=== PATIENT | female | born 1945 | race Caucasian/White ===

== ENCOUNTER → 2017-08-15 08:47 | Outpatient (CLI) | payer MEDICARE, OTHER, SELFPAY ==
[2017-08-15 11:07] LABS: Add Manual Diff / Slide Review NO; Basophils Percent Auto 0.4 % (0-2); Eosinophils Percent Auto 1.1 % (2-4); Hematocrit 41.2 % (36-46); Hemoglobin 14.2 g/dL (12.0-16.0); Mean Corpuscular HGB Conc 34.5 % (30-36); Mean Corpuscular Hemoglobin 30.3 PG (26-34); Mean Corpuscular Volume 87.8 fL (80-100); Neutrophils Absolute Auto 4400 /uL (3000-5900); Neutrophils Percent Auto 69.5 % (50-75); Platelet Count 553 X10^3/uL (150-400); Red Blood Cell Count 4.68 X10^6/uL (4.0-5.2); Red Cell Distribution Width 13.2 % (11.6-14.8); White Blood Cell Count 6.4 X10^3/uL (4.5-11.0)
[2017-08-15 11:24] LABS: Cholesterol 181 mg/dL (140-199); HDL Cholesterol 44 mg/dL (40-60); LDL Cholesterol Calculated 107 mg/dL (<100); Triglycerides 150 mg/dL (35-150)
[2017-08-15 11:50] LABS: TSH w/ Reflex to FT4 2.63 uIU/mL (0.47-4.68)
== END ==
PROVIDERS: PCP Internal Medicine; Visit Provider Internal Medicine
DX: D47.3 Essential (hemorrhagic) thrombocythemia (principal); Z13.220 Encounter for screening for lipoid disorders
CPT/HCPCS: 36415; 80061; 84443; 85025

== ENCOUNTER → 2017-10-14 12:23 | Outpatient (CLI) | payer MEDICARE, OTHER, SELFPAY | PROVIDERS: PCP Internal Medicine; Visit Provider Physician Assistant | DX: M54.5 Low back pain (principal) | CPT/HCPCS: 87077; 87086 ==

== ENCOUNTER → 2017-11-16 10:41 | Outpatient (CLI) | payer MEDICARE, OTHER, SELFPAY | PROVIDERS: PCP Internal Medicine; Visit Provider Physician Assistant | DX: R30.0 Dysuria (principal) | CPT/HCPCS: 87077; 87086; 87186 ==

== ENCOUNTER → 2017-11-30 17:09 | Outpatient (CLI) | payer MEDICARE, OTHER, SELFPAY | PROVIDERS: PCP Internal Medicine; Visit Provider Physician Assistant | DX: N30.91 Cystitis, unspecified with hematuria (principal) | CPT/HCPCS: 87077; 87086; 87186 ==

== ENCOUNTER → 2018-07-25 14:32 | Outpatient (CLI) | payer MEDICARE, OTHER, SELFPAY | PROVIDERS: PCP Internal Medicine; Visit Provider Physician Assistant | DX: N39.0 Urinary tract infection, site not specified (principal) | CPT/HCPCS: 87077; 87086; 87186 ==

== ENCOUNTER → 2018-08-11 13:57 | Outpatient (CLI) | payer MEDICARE, OTHER, SELFPAY ==
[2018-08-11 14:18] LABS: RBC Urine None Seen (0-5/HPF)
[2018-08-11 14:49] LABS: Appearance Urine UA SL CLOUDY; Bilirubin Urine UA NEGATIVE (NEGATIVE); Glucose Urine UA NEGATIVE (Negative); Ketones Urine UA NEGATIVE (NEGATIVE); Leukocyte Esterase Urine UA 2+ (NEGATIVE); Nitrite Urine UA POSITIVE (Negative); Occult Blood Urine UA NEGATIVE (Negative); Protein Urine UA TRACE (Negative); pH Urine UA 7.5 (4.5-8.0)
[2018-08-11 14:58] LABS: Amorphous Sediment Urine 1+; Bacteria Urine Many (>30); Color Urine UA Dark Yellow; Culture Indicated Urine Specimen Cultured; Mucus Urine 1+ (Negative); Squamous Epithelial Cell Urine 1-5 /HPF (0-5/HPF); WBC Urine 10-30/HPF (0-5/HPF)
== END ==
PROVIDERS: Visit Provider Urology
DX: N39.0 Urinary tract infection, site not specified (principal)
CPT/HCPCS: 81001; 87077; 87086; 87186

== ENCOUNTER → 2018-08-25 15:10 | Outpatient (CLI) | payer MEDICARE, OTHER, SELFPAY | PROVIDERS: Visit Provider Urology | DX: R30.0 Dysuria (principal) | CPT/HCPCS: 87077; 87086; 87186 ==

== ENCOUNTER → 2018-09-16 12:11 | Outpatient (CLI) | payer MEDICARE, OTHER, SELFPAY ==
--- NOTE | 2018-09-16 | DI.CT.S_ITS ---
PROCEDURE: CT KIDNEY URETER BLADDER (KUB) INDICATIONS: UTI TECHNIQUE: Noncontrast 5 mm thick sections acquired from the diaphragms to the symphysis. 5 mm thick coronal and sagittal reformats were then performed. For radiation dose reduction, the following was used: automated exposure control, adjustment of mA and/or kV according to patient size. COMPARISON: None. FINDINGS: Image quality: Excellent. Lung bases: Lung bases are clear. Heart size is normal. Urinary system: Both kidneys are normal in size. No kidney stones. No hydronephrosis or perinephric fat stranding. Both ureters appear non-dilated throughout their expected courses. Bladder wall thickness is normal; no calcified bladder stones. Other solid organs: Liver is normal in size. Gallbladder appears normal but partially contracted. Pancreas is normal in contours. Spleen is normal in size. No adrenal nodules. Peritoneum and bowel: Unenhanced bowel loops demonstrate normal wall thickness and caliber. No free fluid or air. Nodes and vessels: No retroperitoneal or mesenteric adenopathy by size criteria. Aorta and inferior vena cava are normal in caliber. Abdominal wall: No ventral hernias. Pelvis: No free pelvic fluid. No inguinal hernias or adenopathy. Bones: No suspicious bony lesions. No vertebral body compression fractures. . IMPRESSION: Normal appendix, no sign of urinary tract stone or inflammation. Dictated by: Paul Chen M.D. on 09/16/2018 at 12:47 Approved by: Paul Chen M.D. on 09/16/2018 at 12:49
== END ==
PROVIDERS: Visit Provider Urology
DX: N39.0 Urinary tract infection, site not specified (principal)
CPT/HCPCS: 74176

== ENCOUNTER → 2019-08-03 12:09 | Outpatient (CLI) | payer MEDICARE, OTHER, SELFPAY | PROVIDERS: Visit Provider Family Medicine | DX: N39.0 Urinary tract infection, site not specified (principal) | CPT/HCPCS: 87086 ==

== ENCOUNTER → 2019-09-03 18:34 | Outpatient (ROUT) | payer MEDICARE, OTHER, SELFPAY ==
[2019-09-03 18:51] LABS: Add Manual Diff / Slide Review NO; Basophils Absolute Auto 0 /uL (0-100); Basophils Percent Auto 0.7 % (0-2); Eosinophils Absolute Auto 100 /uL (0-450); Eosinophils Percent Auto 1.5 % (2-4); Hematocrit 38.9 % (36-46); Hemoglobin 13.3 g/dL (12.0-16.0); Lymphocytes Absolute Auto 1200 /uL (1100-4500); Lymphocytes Percent Auto 23.4 % (25-40); Mean Corpuscular HGB Conc 34.3 % (30-36); Mean Corpuscular Hemoglobin 29.8 PG (26-34); Mean Corpuscular Volume 87.1 fL (80-100); Monocytes Absolute Auto 300 /uL (0-900); Monocytes Percent Auto 5.9 % (3-14); Neutrophils Absolute Auto 3500 /uL (1500-7000); Neutrophils Percent Auto 68.5 % (50-75); Platelet Count 547 X10^3/uL (150-400); Red Blood Cell Count 4.47 X10^6/uL (4.0-5.2); Red Cell Distribution Width 13.1 % (11.6-14.8); White Blood Cell Count 5.1 X10^3/uL (4.5-11.0)
[2019-09-03 18:55] LABS: Alanine Aminotransferase 25 IU/L (<35); Albumin 3.8 g/dL (3.5-5.0); Albumin Globulin Ratio 1.7 (1.0-2.8); Alkaline Phosphatase 69 U/L (38-126); Aspartate Aminotransferase 24 IU/L (14-36); BUN Creatinine Ratio 22.5 (6-22); Bilirubin Total 0.6 mg/dL (0.2-1.3); Blood Urea Nitrogen 23 mg/dL (7-17); Calcium 9.8 mg/dL (8.4-10.2); Carbon Dioxide 27 mmol/L (22-32); Chloride 105 mmol/L (98-107); Cholesterol 147 mg/dL (140-199); Globulin 2.3 g/dL (1.7-4.1); Glucose 70 mg/dL (80-110); HDL Cholesterol 41 mg/dL (40-60); HEMOLYSIS < 15 (0-50); LDL Cholesterol Calculated 80 mg/dL (<100); Potassium 4.8 mmol/L (3.4-5.1); Sodium 137 mmol/L (137-145); Total Protein 6.1 g/dL (6.3-8.2); Triglycerides 131 mg/dL (35-150)
[2019-09-03 19:23] LABS: TSH w/ Reflex to FT4 0.21 uIU/mL (0.47-4.68)
[2019-09-03 19:50] LABS: Free T4, Direct Thyroxine 1.41 ng/dL (0.78-2.19)
== END ==
PROVIDERS: Visit Provider Physician Assistant
DX: E03.9 Hypothyroidism, unspecified (principal); E78.2 Mixed hyperlipidemia
CPT/HCPCS: 80053; 80061; 84439; 84443; 85025

== ENCOUNTER → 2019-09-23 09:07 | Outpatient (CLI) | payer MEDICARE, OTHER, SELFPAY ==
[2019-09-23 09:50] LABS: Hemoglobin 13.5 g/dL (12.0-16.0); Mean Corpuscular HGB Conc 33.7 % (30-36); Mean Corpuscular Hemoglobin 29.5 PG (26-34); Mean Corpuscular Volume 87.5 fL (80-100); Platelet Count 564 X10^3/uL (150-400); Red Blood Cell Count 4.57 X10^6/uL (4.0-5.2); Red Cell Distribution Width 13.2 % (11.6-14.8); White Blood Cell Count 5.5 X10^3/uL (4.5-11.0)
[2019-09-23 10:16] LABS: BUN Creatinine Ratio 23.6 (6-22); Blood Urea Nitrogen 25 mg/dL (7-17); Calcium 9.6 mg/dL (8.4-10.2); Carbon Dioxide 29 mmol/L (22-32); Chloride 105 mmol/L (98-107); Estimated Glomerular Filt Rate 50.7 mL/min (>60); Glucose 91 mg/dL (80-110); HEMOLYSIS < 15 (0-50); Potassium 4.5 mmol/L (3.4-5.1); Sodium 140 mmol/L (137-145)
[2019-09-23 10:20] LABS: Neutrophils Absolute Manual 3795 /uL (3000-5900); Total Cells Counted 100
[2019-09-23 10:21] LABS: RBC Morphology Normal Morphology
[2019-09-23 10:43] LABS: TSH w/ Reflex to FT4 1.13 uIU/mL (0.47-4.68)
== END ==
PROVIDERS: PCP Physician Assistant; Referring Provider Physician Assistant; Visit Provider Physician Assistant
DX: D47.3 Essential (hemorrhagic) thrombocythemia (principal); E16.2 Hypoglycemia, unspecified; E03.9 Hypothyroidism, unspecified
CPT/HCPCS: 36415; 80048; 83036; 84443; 85025

== ENCOUNTER → 2019-11-02 11:12 | Outpatient (CLI) | payer MEDICARE, OTHER, SELFPAY ==
--- NOTE | 2019-11-02 11:14 | DI.US.S_ITS ---
PROCEDURE: US CAROTID DOPPLER BI INDICATIONS: Dizziness and thrombocythemia TECHNIQUE: Color and pulse Doppler interrogation was performed of both carotid systems, with image documentation and velocity measurements. COMPARISON: None. FINDINGS: Stenosis calculations are based on SRU (Society of Radiologists in Ultras[employer]) criteria. The flow velocities and the arterial waveforms are normal within both carotid arterial systems. Atherosclerotic plaque is seen on both sides. The estimated degree of internal carotid artery stenosis is less than 50%. Antegrade flow is confirmed within both vertebral arteries. IMPRESSION: No hemodynamically significant stenosis is seen. Atherosclerotic plaque is noted bilaterally. Dictated by: Turner Booth M.D. on 11/02/2019 at 14:51 Approved by: Turner Booth M.D. on 11/02/2019 at 14:51
== END ==
PROVIDERS: PCP Physician Assistant; Referring Provider Physician Assistant; Visit Provider Internal Medicine
DX: I65.23 Occlusion and stenosis of bilateral carotid arteries (principal); D47.3 Essential (hemorrhagic) thrombocythemia; R42 Dizziness and giddiness
CPT/HCPCS: 93880

== ENCOUNTER → 2019-12-08 13:20 | Oncology outpatient (ONC) | payer MEDICARE, OTHER, SELFPAY ==
[2019-10-27 11:21] VITALS: BP 142/82; PULSE 76; RESP 76; TEMP 36.4; O2SAT 100
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
[2019-10-28 10:25] LABS: Hematocrit 43.2 % (36-46); Hemoglobin 14.7 g/dL (12.0-16.0); Mean Corpuscular Hemoglobin 29.4 PG (26-34); Mean Corpuscular Volume 86.4 fL (80-100); Platelet Count 562 X10^3/uL (150-400); Red Cell Distribution Width 13.7 % (11.6-14.8); White Blood Cell Count 6.1 X10^3/uL (4.5-11.0)
[2019-10-28 10:40] LABS: Neutrophils Absolute Manual 4514 /uL (3000-5900); Total Cells Counted 100
[2019-10-28 10:41] LABS: Platelet Estimate Increased on smear; RBC Morphology Normal Morphology
[2019-10-28 10:50] LABS: HEMOLYSIS < 15 (0-50); Iron 122 ug/dL (37-170)
[2019-10-28 10:54] LABS: Erythrocyte Sedimentation Rate 4 MM/HR (0-20)
[2019-10-28 10:59] LABS: C-Reactive Protein Quant < 0.5 mg/dL (<1.0)
[2019-10-28 11:00] LABS: Percent Iron Saturation 39 % (15-50); Total Iron Binding Capacity 314 ug/dL (265-497); Transferrin 239 mg/dL (206-381)
[2019-10-28 11:26] LABS: Ferritin 105 ng/mL (11-264)
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
[2019-11-17 15:49] VITALS: BP 135/86; PULSE 66; RESP 16; TEMP 36.6; O2SAT 98
[2019-12-08 13:21] VITALS: BP 137/84; PULSE 65; RESP 18; TEMP 36.9; O2SAT 98
--- NOTE | 2019-12-08 14:11 | P.PNONC_ITS ---
PN -Subjective Interval history: Shira Bui is a 74 year old female who presents for further evaluation of an elevated platelet count. Review of her records shows that on November 12, 2016 she had a platelet count of 512,000. Hemoglobin, hematocrit, white count, white cell differential, red cell indices, and RDW were all normal at that time. She had additional blood work done on September 02 when she had a platelet count of 547,000. CBC was otherwise normal except for a lymphocyte percentage of 23.4 and an eosinophil percentage of 1.5. Metabolic panel showed a BUN 23 glucose 70 total protein of 6.1 of the otherwise a normal comprehensive metabolic panel, lipid profile and T4. Follow-up blood count on September 22 showed a platelet count of 564,000 with an otherwise normal CBC including white cell differential. Because of her persistent thrombocytosis she was referred for Hematology consultation last month. Initial screening with a RANDY 2 mutation analysis was negative for all axons tested. She had additional testing done. She comes in today to review results. Review of systems is remarkable for a 2-3 year history of easy bruising. This occurs primarily on her upper extremities. She does not have prolonged bleeding from superficial cuts or any bleeding from her nose, gums, bowels or urine. She does note some dizziness. It typically comes on when she is standing. She will hold on her sit down until it has resolved. She does have the sensation that her right arm is slightly stronger than her left arm. She notes purple discoloration of her toes for the last several years. This is episodic but frequently present. She does not usually find it painful. She notes some pain in her right arm and across her shoulders for the last month or so. There is no associated numbness or tingling. Does not wake her up at night. She has had a lot of trouble with fatigue for the last 3-6 months. She feels sad. Her broth er-in-law about 6 months ago and she is very worried about her sister. She has taken Prozac in the past on 2 occasions with an excellent response. She currently has citalopram but has not started taking it. She also notes constipation relieved by MiraLax over the last 6 months. Now which she takes the MiraLax she will sometimes have diarrhea rather than a normal stool. She thinks the symptoms are a little worse over the last month or 2. She does not have any rectal bleeding and no pain. She has been on anti depression therapy for a little over a month now is definitely feeling better. She and her are going to be going to [place] for the winter and she will be back in August. She denies anorexia, unintended weight loss, night sweats, headaches, visual symptoms, leg pain, redness or swelling, pleuritic chest pain, shortness of breath, a history of heart attacks or strokes. She denies nausea, vomiting, other pain, fever, chills, mouth sores, trouble swallowing or cough. All other systems are negative. Past medical history 1. Her father of bladder cancer. Family history is otherwise negative for any cancer or blood related illnesses 2. She has had no previous surgeries 3. Current medications include amitriptyline 10 mg at HS, calcium, vitamin-D, and Synthroid 0.125 mg daily. She also takes a baby aspirin daily. 4. Hypothyroidism, on replacement 5. She has no known drug allergy 6. She is accompanied by is very supportive. She is a former smoker quit 25 years ago. She is not a drinker. She goes for some walks, plays golf in boats but is definitely less active over the last 2 months than she was. She generally eats a good diet. 7. She denies high blood pressure, diabetes, rheumatic fever, tuberculosis, heart attacks, strokes, stomach ulcers, pneumonia or any other kind of cancer. - Patient Self-Reported Symptoms SR Constitution: Fatigue/Malaise SR Skin issues: Dry skin, Skin lesions or moles SR Gastrointestinal issues: Constipation SR Hematologic issues: Bleeding/bruising Home Medications and Allergies Home Medications Medication Instructions Recorded Confirmed Type levothyroxine [Synthroid] 125 mcg PO QAM #30 tab 10/25/15 12/08/19 History amitriptyline 10 mg PO BEDTIME 10/27/19 12/08/19 History calcium carbonate-vitamin D3 1 tab DAILY 10/27/19 12/08/19 History [Calcium 500 + D] cholecalciferol (vitamin D3) 25 mcg PO DAILY 10/27/19 12/08/19 History [Vitamin D3] Allergies Allergy/AdvReac Type Severity Reaction Status Date / Time No Known Drug Allergies Allergy Verified 07/25/18 14:23 Exam Vital signs: Vital Signs Temp Pulse Resp BP Pulse Ox 12/08/19 13: 98.4 F 65 18 137/84 98 Intake and Output 12/07/19 12/08/19 12/08/19 23:59 07:59 15:59 Other: Weight 66.5 kg Patient Weight 12/08/19 23:59 Weight 66.5 kg Narrative: She was awake, alert and oriented x3. She was fully ambulatory and in no acute distress. Results - Labs Laboratory Last Values WBC 6.1 X10^3/uL (4.5-11.0) 10/28/19 09: RBC 5.00 X10^6/uL (4.0-5.2) 10/28/19 09: Hgb 14.7 g/dL (12.0-16.0) 10/28/19: Hct 43.2 % (36-46) 10/28/19 09: MCV 86.4 fL (80-100) 10/28/19 09: MCH 29.4 PG (26-34) 10/28/19: MCHC 34.0 % (30-36) 10/28/19 09: RDW 13.7 % (11.6-14.8) 10/28/19 09: Plt Count 562 X10^3/uL (150-400) H 10/28/19 09: Total Counted 100 10/28/19 09: Seg Neutrophils % 72.0 % (38-70) H 10/28/19 09:28 Band Neutrophils % 2.0 % (3-7) L 10/28/19 09: Lymphocytes % (Manual) 18.0 % (25-45) L 10/28/19 09:28 Monocytes % (Manual) 6.0 % (2-11) 10/28/19 09:28 Eosinophils % (Manual) 2.0 % (2-4) 10/28/19: Neutrophils # (Manual) 4514 /uL (6655-4034) 10/28/19 09:28 Platelet Estimate Increased on smear 10/28/19 09:28 RBC Morphology Normal morphology 10/28/19 09:28 ESR 4 MM/HR (0-20) 10/28/19 09:28 Iron 122 ug/dL (37-170) 10/28/19 09:28 TIBC 314 ug/dL (265-497) 10/28/19 09:28 % Saturation 39 % (15-50) 10/28/19 09:28 Transferrin 239 mg/dL (206-381) 10/28/19 09:28 Ferritin 105 ng/mL (11-264) 10/28/19 09:28 C-Reactive Protein < 0.5 mg/dL (<1.0) 10/28/19 09:28 JAK2 V617F Mutation Comment (.) 10/28/19 09:28 JAK2 Exon 12 Backgrnd Comment (.) 10/28/19 09:28 JAK2 Director Review Comment (.) 10/28/19 09:28 JAK2 Ex 12-15 (PCR) Comment (.) 10/28/19 09:28 JAK2 Ex 12-15 Method Comment (.) 10/28/19 09:28 JAK2 Ex 12-15 References Comment (.) 10/28/19 09:28 JAK2 Ex 12-15 Dir Rev Comment (.) 10/28/19 09:28 JAK2 V617F Mut Bckgrnd Comment (.) 10/28/19 09:28 JAK2 HPGDE DNA Extract Completed (.) 10/28/19 09:28 Calreticulin Mutation Comment (.) 11/24/19 08:54 Calreticulin Mut Method Comment (.) 11/24/19 08:54 Calreticulin Background Comment (.) 11/24/19 08:54 Calreticulin References Comment (.) 11/24/19 08:54 Calreticulin Dir Review Comment (.) 11/24/19 08:54 MPL Mut Analysis Result Comment (.) 11/24/19 08:54 MPL Background Comment (.) 11/24/19 08:54 MPL Methodology Comment (.) 11/24/19 08:54 MPL References Comment (.) 11/24/19 08:54 MPL Director Review Comment (.) 11/24/19 08:54 Assessment and Plan (1) Thrombocythemia Status: Acute Ms. Bui has a persistent elevation of her platelet count. It is not severe but is been gradually progressive. The remainder of her CBC has been normal. She does not have splenomegaly either on exam or by CT scan from September of 2018. She has symptoms of easy bruising and also has had some dizzy spells. She is otherwise asymptomatic. RANDY 2 with multiple Exon analysis is negative. C- reactive protein and sedimentation rate are normal. Iron Studies are normal. She has also had testing for calreticulin and MPL both of which are negative. We discussed the fact that about 90% of patients with essential thrombocythemia will have a mutation in 1 of the 3 genes tested. She does not. This makes it less likely that she has essential thrombocythemia but does not exclude the diagnosis. We discussed other potential causes including reactive thrombocytosis from a chronic inflammatory condition, or iron deficiency. She does not have any evidence of these findings. We reviewed the fact that we do not have a specific diagnosis. Further testing would take the form of a bone marrow examination. I explained that if she has essential thrombocythemia, the bone marrow would have characteristic findings. If we were to confirm this diagnosis, we would typically continue her baby aspirin but would also consider starting her on hydroxyurea to try to reduce the risk of thrombotic and bleeding complications from essential thrombocythemia. At the present time, she feels good, and substantially better than before she started back on citalopram. She is active, has had an elevated platelet count for several years, and is comfortable with observation. Given her situation I think that is reasonable. Accordingly, will plan to defer further workup for the time being. Should she have a significant change in her blood counts or clinical status we can reconsider this. Will plan to get her back in August of 2020 when she returns from [place] for a follow-up visit and blood count. I explained be happy to see her any time if we could be of assistance in her care in the interim. She will also continue with citalopram. She definitely feels better since she started this medicine. Of note is that she has taken antidepressants in the past with similarly good FX. She also has atherosclerotic plaquing on her carotid ultrasound without hemodynamically significant stenosis. She was counseled about the importance of regular exercise and a Mediterranean diet. Reviewed strategies to implemented maintain these recommendations. Impression: 1. Elevated platelet count since at least 2016 with otherwise normal CBC 2. RANDY 2 mutation analysis, calreticulin, MPL, markers of inflammation, and iron studies are all normal 3. History of depression with improving symptoms on citalopram. Recommendations: 1. Patient was counseled about options including proceeding with a bone marrow examination versus observation and continuing a baby aspirin daily. She was very comfortable continuing with observation. 2. She was encouraged to keep up with regular exercise of at least 3 hours a week and a Mediterranean diet. 3. Will plan to get her back in August 2020 for a follow-up visit and lab work. 4. She will let us know if any problems or issues arise in the interim.
--- NOTE | 2019-12-09 12:43 | ONC.SCHED ---
Left msg. for patient to schedule 6 month fup with labs prior at main per orders
== END ==
PROVIDERS: PCP Physician Assistant; Referring Provider Physician Assistant; Visit Provider Internal Medicine
DX: D69.6 Thrombocytopenia, unspecified (principal); R53.83 Other fatigue; E03.9 Hypothyroidism, unspecified; Z87.891 Personal history of nicotine dependence; D47.3 Essential (hemorrhagic) thrombocythemia
CPT/HCPCS: 36415; 81219; 81270; 81402; 82728; 83540; 83550; 85025; 85651; 86140; 99204; 99213; 99214

== ENCOUNTER → 2020-09-26 07:52 | Outpatient (CLI) | payer MEDICARE, OTHER, SELFPAY ==
[2020-09-26 09:31] LABS: Hemoglobin 14.1 g/dL (12.0-16.0); Mean Corpuscular HGB Conc 33.5 % (30-36); Mean Corpuscular Hemoglobin 29.8 PG (26-34); Mean Corpuscular Volume 88.8 fL (80-100); Platelet Count 550 X10^3/uL (150-400); Red Blood Cell Count 4.73 X10^6/uL (4.0-5.2); Red Cell Distribution Width 13.4 % (11.6-14.8); White Blood Cell Count 4.7 X10^3/uL (4.5-11.0)
[2020-09-26 09:39] LABS: Alanine Aminotransferase 28 IU/L (<35); Albumin Globulin Ratio 1.6 (1.0-2.8); Alkaline Phosphatase 67 U/L (38-126); Aspartate Aminotransferase 34 IU/L (14-36); BUN Creatinine Ratio 14.7 (6-22); Bilirubin Total 0.5 mg/dL (0.2-1.3); Blood Urea Nitrogen 21 mg/dL (7-17); Calcium 9.8 mg/dL (8.4-10.2); Carbon Dioxide 30 mmol/L (22-32); Chloride 106 mmol/L (98-107); Cholesterol 173 mg/dL (140-199); Estimated Glomerular Filt Rate 35.8 mL/min (>60); Globulin 2.5 g/dL (1.7-4.1); Glucose 87 mg/dL (80-110); HDL Cholesterol 47 mg/dL (40-60); HEMOLYSIS < 15 (0-50); LDL Cholesterol Calculated 104 mg/dL (<100); Potassium 4.4 mmol/L (3.4-5.1); Sodium 140 mmol/L (137-145); Total Protein 6.5 g/dL (6.3-8.2); Triglycerides 109 mg/dL (35-150)
== END ==
PROVIDERS: Internal Medicine; PCP Physician Assistant; Referring Provider Physician Assistant; Visit Provider Physician Assistant
DX: E78.2 Mixed hyperlipidemia (principal); I10 Essential (primary) hypertension; E03.9 Hypothyroidism, unspecified; D47.3 Essential (hemorrhagic) thrombocythemia
CPT/HCPCS: 36415; 80053; 80061; 84443; 85027

== ENCOUNTER → 2022-08-21 15:17 | Outpatient (CLI) | payer MEDICARE, OTHER, SELFPAY ==
--- NOTE | 2022-08-21 | DI.MRI.S_ITS ---
PROCEDURE: MR ABDOMEN WO CON INDICATIONS: Other specified disorders of adrenal gland TECHNIQUE: Coronal HASTE, axial 2-D FLASH in- and [id number] with subtractions from the hepatic dome to the iliac crests. COMPARISON: None. FINDINGS: Image quality: Excellent. Adrenal glands: 2.3 cm T1 hyperintense right adrenal nodularity. Other solid organs: Liver is normal in overall size. Gallbladder contains sludge versus stones.. Biliary system is non dilated. Pancreas is normal in morphology. Spleen is normal in size. Both kidneys are normal in size, without hydronephrosis. Nodes and vessels: No retroperitoneal or mesenteric adenopathy by size criteria. Aorta and inferior vena cava are normal in size. Bowel and peritoneum: Unenhanced bowel loops are normal in caliber. No free fluid. Lung bases: No basal pleural effusions. Heart size is normal. Bones and soft tissues: No ventral hernias. Bone marrow is of normal overall signal. IMPRESSION: 2.3 cm T1 hyperintense right adrenal nodule, new since 2019. Differential includes a recent adrenal hemorrhage due to severe illness, versus necrotic/hemorrhagic pheochromocytoma. Hemorrhagic metastasis is also a consideration, especially if there is history of melanoma. Correlate with history. Gallbladder sludge versus stones. No evidence of acute cholecystitis. Dictated by: Td Lynn M.D. on 08/21/2022 at 16:31 Approved by: Td Lynn M.D. on 08/21/2022 at 16:35
== END ==
PROVIDERS: PCP Internal Medicine; Referring Provider Physician Assistant; Visit Provider Physician Assistant
DX: E27.8 Other specified disorders of adrenal gland (principal)
CPT/HCPCS: 74181

== ENCOUNTER → 2022-09-05 13:21 | Outpatient (CLI) | payer MEDICARE, OTHER, SELFPAY ==
[2022-09-05 15:03] LABS: BUN Creatinine Ratio 22.1 (6-22); Blood Urea Nitrogen 25 mg/dL (7-17); Calcium 10.1 mg/dL (8.4-10.2); Carbon Dioxide 30 mmol/L (22-32); Chloride 102 mmol/L (98-107); Estimated Glomerular Filt Rate 50 mL/min (>60); Glucose 99 mg/dL (80-110); HEMOLYSIS < 15 (0-50); Potassium 4.7 mmol/L (3.4-5.1); Sodium 137 mmol/L (137-145)
[2022-09-05 15:31] LABS: Cortisol AM (Before 10AM) 6.06 ug/dL (4.46-22.7)
[2022-09-10 07:10] LABS: Metanephrine,Plasma 40.5 pg/mL (0.0-88.0)
[2022-09-16 11:48] LABS: Aldosterone/Renin Activity Rat 2.6 (0.0-30.0); Plama Renin, LC/MS/MS 1.282 ng/mL/hr (0.167-5.380)
== END ==
PROVIDERS: PCP Internal Medicine; Referring Provider Surgery; Visit Provider Surgery
DX: E27.9 Disorder of adrenal gland, unspecified (principal)
CPT/HCPCS: 36415; 80048; 82088; 82533; 83835; 84244; 99214

== ENCOUNTER → 2022-09-09 10:47 | Outpatient (CLI) | payer MEDICARE, OTHER, SELFPAY ==
--- NOTE | 2022-09-09 10:48 | DI.CT.S_ITS ---
PROCEDURE: CT ABDOMEN ADRENAL PROTOCOL INDICATIONS: right adrenal incidentaloma TECHNIQUE: Noncontrast 3 mm thick sections acquired from the diaphragms to the iliac crests. After the administration of intravenous contrast, 3 mm thick venous-phase and 15-minute delayed images acquired from the diaphragms to the iliac crests. For radiation dose reduction, the following was used: automated exposure control, adjustment of mA and/or kV according to patient size. COMPARISON: [facility], CT, CT KIDNEY URETER BLADDER (KUB), 09/16/2018, 12:13. [facility], MR, MR ABDOMEN WO CON, 08/21/2022, 15:19. FINDINGS: Image quality: Excellent. Lung bases: Lung bases are clear. Heart size is normal. Small hiatal hernia. Adrenal glands: 1.9 centimeter right adrenal with the following characteristics: -noncontrast Hounsfield unit: 33. -portal venous Hounsfield unit: 40. -delayed Hounsfield unit: 45. No washout. Solid organs: Liver is normal in size and enhancement. Gallbladder is unremarkable . Biliary system is non dilated. Pancreas enhances normally. Spleen is normal in size and enhancement. Kidneys are normal in size and enhancement. No hydronephrosis or nephrolithiasis. Peritoneum and bowel: Unenhanced bowel loops are normal in caliber and wall thickness. No free fluid or air. Nodes and vessels: No retroperitoneal or mesenteric adenopathy by size criteria. Aorta and inferior vena cava are normal in size. Miscellaneous: No ventral hernias. Bones: No suspicious bony lesions. No vertebral body compression fractures. IMPRESSION: The right adrenal nodule has indeterminate enhancement profile, not consistent with a benign adrenal adenoma. Further evaluation is warranted, as this could represent an early adrenal cortical malignancy or pheochromocytoma. Dictated by: Td Lynn M.D. on 09/09/2022 at 12:16 Approved by: Td Lynn M.D. on 09/09/2022 at 12:20
== END ==
PROVIDERS: PCP Internal Medicine; Referring Provider Surgery; Visit Provider Surgery
DX: E27.9 Disorder of adrenal gland, unspecified (principal); K44.9 Diaphragmatic hernia without obstruction or gangrene
CPT/HCPCS: 74170; Q9967

== ENCOUNTER → 2022-12-25 13:18 | Outpatient (CLI) | payer MEDICARE, OTHER, SELFPAY ==
[2022-12-25 14:29] LABS: Estimated Glomerular Filt Rate 57 mL/min (>60)
--- NOTE | 2022-12-25 15:11 | DI.CT.S_ITS ---
PROCEDURE: CT ABDOMEN ADRENAL PROTOCOL INDICATIONS: adrenal nodule TECHNIQUE: Noncontrast 3 mm thick sections acquired from the diaphragms to the iliac crests. After the administration of intravenous contrast, 3 mm thick venous-phase and 15-minute delayed images acquired from the diaphragms to the iliac crests. For radiation dose reduction, the following was used: automated exposure control, adjustment of mA and/or kV according to patient size. COMPARISON: [facility], CT, CT KIDNEY URETER BLADDER (KUB), 09/16/2018, 12:13. [facility], CT, CT ABDOMEN ADRENAL PROTOCOL, 09/09/2022, 10:56. FINDINGS: Image quality: Good Lower chest: Lung bases were unremarkable. Possible small hiatal hernia. Solid organs: Cholelithiasis. Liver is unremarkable. [id number] pancreatic parenchymal atrophy. No biliary or pancreatic ductal dilation. Spleen size is at the upper limit of normal. No hydronephrosis. No solid renal mass. Again seen is a left adrenal nodule, measuring 1.4 x 1.1 cm, decreased in size, previously 1.8 x 1.5 cm. As before, enhancement characteristics are not characteristic of an adrenal adenoma. Vessels and lymph nodes: The main portal vein is patent. Atherosclerotic calcifications. No abdominal aortic aneurysm or pathologic lymphadenopathy. Bowel and peritoneum: No bowel obstruction. No pathologic ascites or abscess. Body wall: Unremarkable Bones: No acute or suspicious osseous finding. IMPRESSION: The right adrenal nodule is decreased in size, favoring benign etiology such as adrenal hemorrhage, probably de joon as there was no lesion seen in 2019 CT. A small nodule remains with indeterminate imaging characteristics. Although malignancy is not favored, further follow-up may be obtained at clinical discretion to ensure stability or resolution. Dictated by: Everardo Lynch M.D. on 12/25/2022 at 16:46 Approved by: Everardo Lynch M.D. on 12/25/2022 at 16:54
== END ==
PROVIDERS: Radiology Diagnostic Radiology; PCP Internal Medicine; Referring Provider Surgery; Visit Provider Surgery
DX: E27.9 Disorder of adrenal gland, unspecified (principal)
CPT/HCPCS: 36415; 74170; 82565; Q9967

== ENCOUNTER → 2023-11-01 14:25 | Outpatient (CLI) | payer MEDICARE, OTHER, SELFPAY ==
[2023-11-01 16:30] LABS: Influenza A - CEPHEID Flu A NEGATIVE (NEGATIVE); Influenza B - CEPHEID Flu B NEGATIVE (NEGATIVE); Respiratory Syncytial Virus Negative (Negative)
[2023-11-01 17:07] LABS: COVID-19 CEPHEID 4-PLEX PCR Negative (Negative)
== END ==
PROVIDERS: PCP Internal Medicine; Visit Provider Physician Assistant Surgical
DX: R68.83 Chills (without fever) (principal)
CPT/HCPCS: 0241U

== ENCOUNTER → 2024-01-13 16:42 | Outpatient (CLI) | payer MEDICARE, OTHER, SELFPAY | PROVIDERS: PCP Internal Medicine; Visit Provider Nurse Practitioner Family | DX: R53.83 Other fatigue (principal); N30.01 Acute cystitis with hematuria | CPT/HCPCS: 87086 ==